=== PATIENT | male | born 1955 | race Caucasian/White ===

== ENCOUNTER 2021-03-25 09:07 | Emergency (ER) | payer MEDICARE, OTHER ==
[~2021-03-25] VITALS: Ht 177.8 cm; Wt 93.0 kg
--- NOTE | 2021-03-25 09:17 | NUR ---
PATIENT WALKED BACK FROM TRIAGE WITH CHIEF C/O THROAT SWELLING AND PAIN SINCE SUNDAY. SEEN AT , SYMPTOMS HAVE NOT IMPROVED. [place] AND EAR PAIN SINCE LAST NIGHT, DIFFICULTY DRINKING AND EATING. NADN, PATIENT ABLE TO SPEAK IN FULL SENTENCES, CONNECTED TO MONITOR, VSS, CALL LIGHT WITHIN REACH. AT BEDSIDE.
[2021-03-25] MEDS ORDERED: MORPHINE SULFATE 4 MG/ML, 1ML ONE (09:24)
[2021-03-25] MEDS ORDERED: DEXAMETHASONE 4 MG/ML, 1ML IV ONE (09:30)
[2021-03-25] MEDS ORDERED: MORPHINE SULFATE 4 MG/ML, 1ML IVPush PRN (09:30)
[2021-03-25] MEDS ORDERED: LIDOCAINE 1%-EPI 1:100K, 20ML INFIL ONE (09:30)
[2021-03-25] MEDS ORDERED: SODIUM CHLORIDE 0.9% 1,000ML IVBOLUS ONE (09:30)
[2021-03-25] MEDS ORDERED: AMPICILLIN/SULBACTAM 3 GM in SODIUM CHLORIDE 0.9% 100 ML IV ONE (09:30)
[2021-03-25] MEDS ORDERED: BENZOCAINE 20% SPRAY 0.5ML TP ONE (09:30)
[2021-03-25] MEDS ORDERED: DEXAMETHASONE 4 MG/ML, 1ML ONE (09:40)
[2021-03-25] MEDS ORDERED: LIDOCAINE 1%-EPI 1:100K, 20ML ONE (09:50)
[2021-03-25] MEDS ORDERED: BENZOCAINE 20% SPRAY 0.5ML ONE (09:50)
[2021-03-25 10:38] LABS: BASOPHILS % (AUTO) 0 % (0-1); EOSINOPHILS % (AUTO) 0 % (1-7); LYMPHOCYTES % (AUTO) 20 % (22-44); MEAN CORPUSCULAR HGB CONC 34.8 g/dL (33.2-36.2); MEAN PLATELET VOLUME 10.3 fL (7.4-10.4); MONOCYTES % (AUTO) 12 % (2-9); NEUTROPHILS % (AUTO) 68 % (42-75); PLATELET COUNT 184 x10^3/uL (130-400); RED BLOOD COUNT 5.04 x10^6/uL (4.38-5.82); RED CELL DISTRIBUTION WIDTH 13.3 % (9.4-14.8)
[2021-03-25 10:47] LABS: ALBUMIN 4.1 g/dL (3.4-5.0); ANION GAP 10 mmol/L (5-15); CALCIUM 9.4 mg/dL (8.5-10.1); CHLORIDE 101 mmol/L (98-107)
--- NOTE | 2021-03-25 10:48 | NUR ---
[facility]CTED TO MONITOR, VSS, AT BEDSIDE, CALL LIGHT WITHIN REACH, NO FURTHER NEEDS AT THIS TIME.
--- NOTE | 2021-03-25 11:21 | NUR ---
PATIENT SITTING IN [place], HUEY PERFORMED ABCSESS DRAINAGE, PATIENT REPORTS RELIEF FROM PROCEDURE, CONNECTED TO MONITOR, VSS, AT BEDSIDE, CALL LIGHT WITHIN REACH, NO FURTHER NEEDS AT THIS TIME.
--- NOTE | 2021-03-25 11:40 | NUR ---
PATIENT AMBULATED TO BATHROOM WITH STEADY GAIT.
--- NOTE | 2021-03-25 11:54 | NUR ---
ERMD AT BEDSIDE TO DISCUSS POC.
[2021-03-25 12:00] VITALS: BP 169/92
--- NOTE | 2021-03-25 12:47 | NUR ---
PATIENT LAYING IN [facility], AT BEDSIDE. WAITING FOR DC PAPERS.
== END 2021-03-25 13:28 | disposition home or self-care (01) ==
LOC: ED 11:13
DX: J36 Peritonsillar abscess (principal); R51.9 Headache, unspecified; K08.89 Other specified disorders of teeth and supporting structures; I10 Essential (primary) hypertension
CPT/HCPCS: 36415; 42700; 80048; 82040; 85025; 86308; 96365; 96375; 99284; J0295; J1100; J2270; J7030